=== PATIENT | female | born 1965 | race African-American/Black ===

== ENCOUNTER 2021-07-14 20:13 | Observation (INO) | payer OTHER ==
[~2021-07-14] VITALS: Ht 149.9 cm; Wt 66.7 kg
[2021-07-14 20:26] VITALS: BP 156/89; TEMP 98.7
[2021-07-14 20:59] LABS: PLATELET COUNT 327 K/uL (152-353)
[2021-07-14 21:06] LABS: POTASSIUM 4.3 mmol/L (3.6-5.2)
[2021-07-15 00:08] VITALS: BP 155/89; TEMP 98.1; Ht 149.9 cm; Wt 66.7 kg
[2021-07-15 04:04] VITALS: BP 120/78; TEMP 97.8
[2021-07-15 05:46] LABS: PLATELET COUNT 327 K/uL (152-353)
[2021-07-15 05:56] LABS: POTASSIUM 4.3 mmol/L (3.6-5.2)
[2021-07-15] MEDS ORDERED: EUTHYROX150 MCG PO (07:14)
[2021-07-15] MEDS ORDERED: AMITRIPTYLINE H25 MG PO (07:16)
[2021-07-15] MEDS ORDERED: TOPIRAMATE25 MG PO (07:19)
[2021-07-15] MEDS ORDERED: SUMATRIPTAN50 MG PO (07:22)
[2021-07-15 08:00] VITALS: BP 144/76; TEMP 97.4
[2021-07-15 12:00] VITALS: BP 139/71; TEMP 98.1
[2021-07-15 16:00] VITALS: BP 140/77; TEMP 98
[2021-07-15 20:23] VITALS: BP 112/59; TEMP 98.4
[2021-07-16] VITALS: BP 126/66; TEMP 98.3
[2021-07-16 03:34] VITALS: BP 123/73; TEMP 98.3
[2021-07-16 08:00] VITALS: BP 129/79; TEMP 97.8
[2021-07-16 12:00] VITALS: BP 105/65; TEMP 98.2
[2021-07-16 16:00] VITALS: BP 135/75; TEMP 98.1
[2021-07-16 20:22] VITALS: BP 105/68; TEMP 98.8
[2021-07-17 00:02] VITALS: BP 97/58; TEMP 98.01
[2021-07-17 03:50] VITALS: BP 92/56; TEMP 98.01
[2021-07-17 08:00] VITALS: BP 150/90; TEMP 98.1
[2021-07-17 12:00] VITALS: BP 119/79; TEMP 99.3
[2021-07-17 16:00] VITALS: BP 158/83; TEMP 99
[2021-07-17 20:00] VITALS: BP 127/82; TEMP 98.3
[2021-07-18] VITALS: BP 107/69; TEMP 99
[2021-07-18 04:00] VITALS: BP 104/70; TEMP 98.4
[2021-07-18 08:00] VITALS: BP 132/78; TEMP 98.9
[2021-07-18] MEDS ORDERED: TIZA4TAB5 PO (08:46)
[2021-07-18] MEDS ORDERED: ASPI81TA4 PO (08:46)
[2021-07-18] MEDS ORDERED: HYDROCODONE BIT1 TA2 PO (09:15)
== END 2021-07-18 11:00 | disposition home or self-care (01) ==
LOC: ED 20:13 → MED/SURG 22:00
PROVIDERS: Emergency Medicine; ADMIT Internal Medicine; ATTEND Internal Medicine
DX: R51.9 Headache, unspecified (principal); E03.8 Other specified hypothyroidism; H53.8 Other visual disturbances; R20.0 Anesthesia of skin; R53.1 Weakness; R73.03 Prediabetes
CPT/HCPCS: 36415; 80053; 82948; 83036; 84484; 85027; 85610; 87635; 93005; 96360; 96361; 96365; 96374; 96375; 99220; 99283; G0378; J2270; U0003